=== PATIENT | female | born 1985 | race Caucasian/White ===

== ENCOUNTER → 2019-04-05 | Outpatient (CLI) | payer BC, MEDICAID ==
[2019-04-05 12:43] LABS: HEMATOCRIT 39.9 % (37.0-47.0); HEMOGLOBIN 12.8 g/dL (12.5-16.0); LYMPH# 0.9 (1.50-4.00); MEAN CELL VOLUME 98 fl (78-100); MEAN CORPUSCULAR HEMOGLOBIN 31 pg (27-31); MEAN CORPUSCULAR HGB CONC 32 g/dL (33-37); MEAN PLATELET VOLUME 10.5 fl (7.4-10.4); MONO # 0.3 (0.20-0.80); NEU # 2.8 (1.40-6.50); PLATELET COUNT 239 K/mm3 (130-400); RED BLOOD COUNT 4.08 M/mm3 (4.10-5.30); RED CELL DISTRIBUTION WIDTH 12.6 % (11.5-14.5); WHITE BLOOD COUNT 4.2 K/mm3 (4.8-10.8)
[2019-04-05 12:50] LABS: ALBUMIN 4.5 g/dL (3.5-5.0)
[2019-04-05 12:52] LABS: TOTAL PROTEIN 7.4 g/dL (6.4-8.3)
[2019-04-05 12:54] LABS: TOTAL BILIRUBIN 0.5 mg/dL (0.2-1.2)
== END ==
LOC: LAB 12:18
PROVIDERS: Family Medicine
DX: Z00.00 Encounter for general adult medical examination without abnormal findings (principal); E78.5 Hyperlipidemia, unspecified

== ENCOUNTER → 2021-01-01 | Outpatient (CLI) | payer MEDICAID ==
[2021-01-01 16:31] LABS: BASO # 0.02 K/mm3 (0.02-0.10); EOS # 0.08 K/mm3 (0.04-0.40); EOS % 1.2 % (1.0-5.0); HEMATOCRIT 38.7 % (37.0-47.0); HEMOGLOBIN 12.8 g/dL (12.5-16.0); LYMPH# 1.33 K/mm3 (1.50-4.00); MEAN CELL VOLUME 97 fl (78-100); MEAN CORPUSCULAR HEMOGLOBIN 32 pg (27-31); MEAN CORPUSCULAR HGB CONC 33 g/dL (33-37); MEAN PLATELET VOLUME 9.3 fl (7.4-10.4); MONO # 0.51 K/mm3 (0.20-0.80); NEU # 4.54 K/mm3 (1.40-6.50); PLATELET COUNT 266 K/mm3 (130-400); RED BLOOD COUNT 3.98 M/mm3 (4.10-5.30); RED CELL DISTRIBUTION WIDTH 12.7 % (11.5-14.5); WHITE BLOOD COUNT 6.5 K/mm3 (4.8-10.8)
[2021-01-01 16:42] LABS: ALBUMIN 4.3 g/dL (3.5-5.0); POTASSIUM 3.6 mmol/L (3.5-5.1)
[2021-01-01 16:43] LABS: CALCIUM 9.4 mg/dL (8.3-10.5)
[2021-01-01 16:45] LABS: TOTAL PROTEIN 7.3 g/dL (6.4-8.3)
[2021-01-01 16:47] LABS: TOTAL BILIRUBIN 0.4 mg/dL (0.2-1.2)
== END ==
LOC: LAB 16:18
PROVIDERS: Family Medicine
DX: Z00.00 Encounter for general adult medical examination without abnormal findings (principal); E78.5 Hyperlipidemia, unspecified